=== PATIENT | female | born 1970 | race African-American/Black ===

== ENCOUNTER 2019-03-27 10:14 | Emergency (ER) | payer OTHER ==
[~2019-03-27] VITALS: Ht 170.2 cm; Wt 72.6 kg
== END 2019-03-27 14:08 | disposition home or self-care (01) ==
LOC: ER 10:14
DX: D25.1 Intramural leiomyoma of uterus (principal)

== ENCOUNTER 2020-04-18 12:20 | Outpatient (CLI) | payer OTHER | END 2020-04-18 14:41 | disposition home or self-care (01) | LOC: MRI 12:20 | PROVIDERS: ATTEND Orthopaedic Surgery | DX: M17.11 Unilateral primary osteoarthritis, right knee (principal); M71.21 Synovial cyst of popliteal space [Baker], right knee | CPT/HCPCS: 73721 ==

== ENCOUNTER 2021-03-21 14:29 | Emergency (ER) | payer OTHER ==
[~2021-03-21] VITALS: Ht 170.2 cm; Wt 77.1 kg
== END 2021-03-22 09:50 | disposition home or self-care (01) ==
LOC: ER 14:29
DX: K57.33 Diverticulitis of large intestine without perforation or abscess with bleeding (principal)